=== PATIENT | male | born 1945 | race Caucasian/White ===

== ENCOUNTER 2019-12-10 05:41 | Day surgery (SDC) | payer MEDICARE ==
[~2019-12-10] VITALS: Ht 193 cm; Wt 109.0 kg
[~2019-12-10 05:41] MED LIST: ASPI-496 PO; BUPR-86 PO; LISI2.5T PO; METO25TA35 PO; MULT-717 PO; TAMS-11 PO; Vitamin C PO; turmeric PO; tylenol pm PO
[2019-12-10] MEDS ORDERED: LACTATED RINGERS 1,000 ML IV SCH (06:06)
[2019-12-10 06:19] VITALS: BP 120/72
[2019-12-10] MEDS ORDERED: CHLORHEXIDINE 15 ML UDC MM ONE (06:30)
[2019-12-10] MEDS ORDERED: FENTANYL PF 100 MCG/2ML ONE (06:52)
[2019-12-10] MEDS ORDERED: MIDAZOLAM 1 MG/ML, 2ML ONE (06:52)
[2019-12-10 07:20] LABS: ALANINE AMINOTRANSFERASE 42 U/L (12-78); ALBUMIN 3.5 g/dL (3.4-5.0); ANION GAP 8 mmol/L (5-15); CALCIUM 8.5 mg/dL (8.5-10.1); CHLORIDE 110 mmol/L (98-107); CREATININE 0.87 mg/dL (0.7-1.3)
[2019-12-10 07:23] LABS: ALKALINE PHOSPHATASE 86 U/L (45-117); BILIRUBIN,TOTAL 0.4 mg/dL (0.2-1.0); TOTAL PROTEIN 7.2 g/dL (6.4-8.2)
[2019-12-10] MEDS ORDERED: CEFAZOLIN 1,000 MG ONE (07:29)
[2019-12-10] MEDS ORDERED: ONDANSETRON 2MG/ML, 2ML ONE (07:29)
[2019-12-10] MEDS ORDERED: DEXAMETHASONE 4 MG/ML, 1ML ONE (07:29)
[2019-12-10] MEDS ORDERED: PROPOFOL 10 MG/ML, 20ML ONE (07:29)
[2019-12-10] MEDS ORDERED: HYDROcodone/APAP 7.5-325MG/15ML UDC PO PRN (07:30)
[2019-12-10] MEDS ORDERED: FENTANYL PF 100 MCG/2ML IV PRN (07:30)
[2019-12-10] MEDS ORDERED: MEPERIDINE/PF 25MG/0.5ML IVPush PRN (07:30)
[2019-12-10] MEDS ORDERED: PROMETHAZINE 25 MG/ML, 1ML IVPush PRN (07:30)
[2019-12-10] MEDS ORDERED: morphine SULFATE 10 MG/ML, 1ML IVPush PRN (07:30)
[2019-12-10 08:01] LABS: MICROSCOPIC INDICATED
[2019-12-10] MEDS ORDERED: ONDANSETRON 2MG/ML, 2ML IV PRN (08:30)
== END 2019-12-10 10:50 | disposition home or self-care (01) ==
LOC: OUT 05:41
PROVIDERS: ATTEND Urology
DX: N35.912 Unspecified bulbous urethral stricture, male (principal); Z11.59 Encounter for screening for other viral diseases; N40.1 Benign prostatic hyperplasia with lower urinary tract symptoms; N13.8 Other obstructive and reflux uropathy; N52.9 Male erectile dysfunction, unspecified; I48.91 Unspecified atrial fibrillation; I10 Essential (primary) hypertension; J44.9 Chronic obstructive pulmonary disease, unspecified; E11.9 Type 2 diabetes mellitus without complications; E78.00 Pure hypercholesterolemia, unspecified; Z79.01 Long term (current) use of anticoagulants; Z79.899 Other long term (current) drug therapy; Z87.891 Personal history of nicotine dependence; Z98.52 Vasectomy status; Z98.890 Other specified postprocedural states; Z82.49 Family history of ischemic heart disease and other diseases of the circulatory system; Z84.1 Family history of disorders of kidney and ureter
CPT/HCPCS: 52276; 80053; 81001; 82962; 87077; 87086; 93005; C1758; J0690; J1100; J2250; J2405; J2704; J3010; J7120; U0001; 87186